=== PATIENT | male | born 2000 | race African-American/Black ===

== ENCOUNTER 2023-11-29 12:18 | Day surgery (SDC) | payer BC, SELFPAY ==
[2023-11-29] VITALS (14 sets, daily range): BP systolic 88–138; BP diastolic 36–84; PULSE 53–104; RESP 8–20; TEMP 36–37.2; O2SAT 97–100
--- NOTE | ~2023-11-29 | US_ITS ---
EXAMINATION: US scrotum doppler DATE: 11/29/2023 12:58 INDICATION: Left testicular pain TECHNIQUE: Testicular sonogram utilizing grayscale and Doppler COMPARISON: None. FINDINGS: The right testis measures 4.0 x 2.2 x 2.6 cm. The left testis measures 4.1 x 2.5 x 3.4 cm. Symmetric normal grayscale appearance to both testes. Normal vascular flow identified in the right testis with no evident vascular flow in the left testis on color Doppler. The right epididymis is normal with nor mal vascular flow. There is diffuse mild enlargement of the left epididymis which is similar without evident vascular flow on color Doppler. There is no varicocele or hydrocele. IMPRESSION: 1. Normal appearing left testis and diffusely enlarged, likely edematous left testis, both without e vident vascular flow on color Doppler consistent with torsion. Dr. Neil discussed these findings with Dr. Hickman at 1:00 PM. Reviewed, dictated and finalized at location A. R PURIFIER IMPRESSION: 1. Normal appearing left testis and diffusely enlarged, likely edematous left testis, both without evident vascular flow on color Doppler consistent with tor khurram. Dr. Neil discussed these findings with Dr. Hickman at 1:00 PM.
--- NOTE | 2023-11-29 12:21 | ED.MALEGU ---
HPI - Male Genitourinary General Chief complaint: Urogenital-Male Stated complaint: left testicle pain Time Seen by Provider: 11/29/23 12:21 Source: patient Mode of arrival: ambulatory Limitations: no limitations History of Present Illness HPI Narrative: Saul is a 23-year-old male patient presenting to the ER today for complaints of left testicle pain that occurred 1 hour prior to arrival. He denies any known injury to his testicle. No blood in his semen, denies any penile discharge. Denies any fever or chills. Related Data Allergies Allergy/AdvReac Type Severity Reaction Status Date / Time No Known Allergies Allergy Verified 11/29/23 12:28 Review of Systems Review of Systems: Pertinent positives per HPI. Patient denies any fever, chills, rash, headache, visual changes, dizziness, cough, runny nose, sore throat, shortness of breath, chest pain, palpitations, nausea, vomiting, diarrhea, constipation, abdominal pain, or any urinary issues. PMFSH Comments At the time of my signature, I reviewed and agree with the nursing past medical, surgical, social, and family history. There is no relevant family history pertinent to the patient complaint. Exam Narrative: General: Well-developed, well nourished, in no apparent distress. Head: Normocephalic, atraumatic. Cardio: Regular rate and rhythm, s1 and s2 normal, no murmur appreciated. Resp: Clear to auscultation bilaterally, no rhonchi, rales, wheezing or rubs. Abdomen: Soft, pliable, bowel sounds present in all quadrants, non-tender to palpation, no organomegly, no CVAT tenderness. : Circumcised male without corneal adhesions, tenderness to palpation over the left testicle with absent cremasteric reflex, Course Course Emergency Course: Portions of this record may have been created with voice recognition software. Vital Signs Vital signs: Vital Signs Temperature 36.3 C L 11/29/23 12:22 Pulse Rate 66 11/29/23 12:22 Respiratory Rate 20 11/29/23 12:22 Blood Pressure 119/82 11/29/23 12:22 Pulse Oximetry 100 11/29/23 12:22 Oxygen Delivery Room Air 11/29/23 12:22 Temperature 36.6 C 11/29/23 16:25 Pulse Rate 64 01/17/24 16:25 Respiratory Rate 18 11/29/23 16:25 Blood Pressure 119/64 11/29/23 16:25 Pulse Oximetry 100 11/29/23 16:25 Oxygen Delivery Room Air 11/29/23 16:25 Oxygen Flow Rate 7 11/29/23 16:22 Vital signs reviewed MDM - Male Genitourinary MDM Narrative Medical decision making narrative: At the time of visit patient is resting comfortably on the exam table. Patient appears to be nontoxic. Labs: White blood cell count 7.0, H&H is 14.6 and 45.7, platelet count 301, chemistry shows a sodium level 140, potassium at 3.6, chloride of 100, carbon dioxide of 29, BUN is 7 with a creatinine is 0.8, GFR greater than 60, liver function test shows elevation in the AST but normal AL and alk-phos. Diagnostics: US scrotum: Normal appearing left testis and diffusely enlarged, likely edematous left testis, both without evident vascular flow on color Doppler consistent with torsion. Medications given: 8 mg of morphine with 8 mg of Zofran IV push Plan: Consult urology and spoke to Dr. Wren and will send patient to OR. Differential Diagnosis Differential diagnosis: Likely epididymitis, inguinal hernia and other (Testicular torsion, STI infection) Lab Data 11/29/23 12:37 11/29/23 12:37 Labs: Lab Results 11/29/23 Range/Units 12:37 WBC 7.0 (4.5-10.0) K/mm3 RBC 5.09 (4.6-6.20) M/mm3 Hgb 14.6 (14.0-18.0) g/dL Hct 45.7 (42.0-52.0) % MCV 89.8 (80-100) fl MCH 28.7 (26-34) pg MCHC 31.9 L (32-36) g/dl RDW 12.3 (11.5-14.5) % Plt Count 301 (150-375) k/mm3 MPV 9.3 (7.4-10.4) fl Immature Gran % (Auto) 0.3 (0-0.5) % Neut % (Auto) 61.4 (45.5-73.1) % Lymph % (Auto) 27.7 (18.3-44.2) % [place] % (Auto) 9.5 H (2.6-8.5) % Eos % (Auto) 0.7 (0-4
--- NOTE | 2023-11-29 12:40 | PC.NURSE ---
Pt attempted to give u/a sample x 2, unsuccessful, requesting more time
[2023-11-29 12:45] LABS: Basophils Percent Auto 0.4 % (0.2-1.2); Eosinophils Absolute Auto 0.1 K/mm3 (0-0.3); Eosinophils Percent Auto 0.7 % (0-4.4); Hematocrit 45.7 % (42.0-52.0); Hemoglobin 14.6 g/dL (14.0-18.0); Immature Granulocyte Absolute 0.02 K/mm3 (0.00-0.031); Immature Granulocyte Percent A 0.3 % (0-0.5); Lymphocytes Absolute Auto 1.95 K/mm3 (0.9-3.2); Lymphocytes Percent Auto 27.7 % (18.3-44.2); Mean Corpuscular HGB Conc 31.9 g/dl (32-36); Mean Corpuscular Hemoglobin 28.7 pg (26-34); Mean Corpuscular Volume 89.8 fl (80-100); Mean Platelet Volume 9.3 fl (7.4-10.4); Monocytes Absolute Auto 0.7 K/mm3 (0.1-0.6); Monocytes Percent Auto 9.5 % (2.6-8.5); Neutrophils Absolute Auto 4.3 K/mm3 (1.3-6.7); Neutrophils Percent Auto 61.4 % (45.5-73.1); Platelet Count Result 301 k/mm3 (150-375); Red Blood Count 5.09 M/mm3 (4.6-6.20); Red Cell Distribution Width 12.3 % (11.5-14.5)
[2023-11-29 12:56] LABS: Alanine Aminotransferase 39 U/L (6-50); Albumin Level 4.8 g/dL (3.5-5.1); Alkaline Phosphatase 123 U/L (38-126); Anion Gap 11 mmol/L (8-16); Aspartate Amino Transferase 117 U/L (17-59); Bilirubin,Total 1.1 mg/dL (0.2-1.3); Blood Urea Nitrogen 7 mg/dL (9-20); Calcium 9.4 mg/dL (8.4-10.2); Carbon Dioxide 29 mmol/L (22-30); Chloride 100 mmol/L (98-107); Estimated CRCL calculation 118 ml/min; Estimated Glomerular Filt Rate > 60; Glucose 121 mg/dL (65-110); Potassium 3.6 mmol/L (3.4-5.0); Sodium 140 mmol/L (137-145)
[2023-11-29] MEDS: SODIUM CHLORIDE 0.9% IV 1,000 ML 999 ML IV CONT (12:59)
[2023-11-29] MEDS: MORPHINE SULFATE (*CRX) 4 MG/ML INJ IV PUSH ×2 (12:59→13:51)
[2023-11-29] MEDS: ONDANSETRON INJ 4 MG/2 ML VIAL IV PUSH ×2 (12:59→13:51)
--- NOTE | 2023-11-29 14:15 | PM.IMHP ---
H&P: HPI History of Present Illness Date/Time: 11/29/23 14:15 Chief Complaint: Left scrotal pain Narrative: Saul is a 23-year-old male who developed significant left scrotal pain that he noticed after taking a shower. Denies any trauma to the area or prior history of a. He was evaluated in the emergency room were a a scrotal ultrasound was performed and revealed torsion to the left testicle with no flow. Patient is being taken to the operating room emergently for scrotal exploration with left orchiopexy possible right orchiopexy in addition. Review of Systems Review of Systems: All systems reviewed & are unremarkable except as noted in HPI and below Meds Home Medications and Allergies Allergies Allergy/AdvReac Type Severity Reaction Status Date / Time No Known Allergies Allergy Verified 11/29/23 12:28 Vital Signs Vital Signs - 24 hr 11/29/23 12:22 11/29/23 13:49 Temperature 36.3 C L Pulse Rate 66 104 H Respiratory Rate 20 17 Blood Pressure 119/82 138/84 Pulse Oximetry 100 98 Oxygen Delivery Room Air Exam Const: General: cooperative and healthy appearing; No comfortable Resp: Effort & Inspection: normal respiratory effort Cardio: Rate: regular rate Rhythm: regular rhythm : Male General Exam: Yes edema Scrotum: other (Tender left hemiscrotum. Difficult to evaluate given his pain) H&P: Results Labs Labs: Short CBC 11/29/23 Range/Units 12:37 WBC 7.0 (4.5-10.0) K/mm3 Hgb 14.6 (14.0-18.0) g/dL Hct 45.7 (42.0-52.0) % Plt Count 301 (150-375) k/mm3 BMP 11/29/23 12:37 Sodium 140 Potassium 3.6 Chloride 100 Carbon Dioxide 29 BUN 7 L Creatinine 0.80 Glucose 121 H Calcium 9.4 Liver Function 11/29/23 Range/Units 12:37 Total Bilirubin 1.1 (0.2-1.3) mg/dL AST 117 H (17-59) U/L ALT 39 (6-50) U/L Alkaline Phosphatase 123 (38-126) U/L Albumin 4.8 (3.5-5.1) g/dL Assessment and Plan Assessment and plan (1) Left testicular torsion: Code(s): N44.00 - Torsion of testis, unspecified Status: Acute Assessment and Plan: Proceed with scrotal exploration and possible bilateral orchiopexy
--- NOTE | 2023-11-29 14:18 | WPDHPUPDATE1 ---
History and Physical Update Update Date/Time: 11/29/23 14:18 History and Physical has been reviewed, including an updated exam of the patient. There are NO changes in the patient's condition. Risks, benefits, and alternatives have been discussed and questions answered. Patient agrees to proceed with procedure. Proceed with scrotal exploration and possible bilateral orchiopexy
[2023-11-29] MEDS: ceFAZolin 2 GM/D5W 50 ML 2 GM/50 ML BAG IVPB (14:24)
[2023-11-29] MEDS: BUPivacaine HCL 0.25% PF 30 ML VIAL 10 ML INFILTRATE (15:15)
--- NOTE | 2023-11-29 15:19 | W.PM.PROC2 ---
Procedure Note - Detailed Date of Procedure 11/29/23 Pre-op Diagnosis left testicle pain Left testicular torsion Post-op Diagnosis Same Procedure Performed Scrotal exploration, left hydrocelectomy, left orchiopexy with detorsion of testicle Surgeon Manuel Wren MD Anesthesia General Findings Torsed left testicle 180? Description of Procedure Patient is taken the operative suite correctly identified. Once anesthesia was obtained he was prepped draped usual sterile fashion. Transverse incision was made in left hemiscrotum. His tunica layers were very thin. We were able to bring the testicle out. He did have a hydrocele. The hydrocele was opened and drained of straw-colored fluid. There was only approximately 10-15 cc present. Excess skin was excised. The testicle was noted to be torsed. We de torsed the testicle. The appendix testes was removed. An orchiopexy was done with a 3 point fixation using 3-0 Ethibond. Testicle was in proper location. It had nice color to it. Tunica was closed using 3-0 chromic. Skin was closed using 3-0 chromic in a running fashion. Patient tolerated procedure well without any complications and was taken recovery stable condition. This completes dictation. Please send a copy of op note to my office Estimated Blood Loss 0 Drains No Packing No Pathology Yes Complications No immediate complications Condition Stable
[2023-11-29] MEDS: LACTATED RINGERS 1,000 ML 30 ML IV CONT ×2 (15:20→15:21)
--- NOTE | 2023-11-29 16:28 | SUR.PHASEI ---
1624: Simple mask removed.
--- NOTE | 2023-11-29 18:44 | SUR.PHASEII ---
1830 PT MEETS ANESTHESIA DISCHARGE CRITERIA. DISCHARGE INSTRUCTIONS GIVEN TO PT & OVER THE PHONE TO PTS MOTHER- ALL QUESTIONS ANSWERED. PT DRESSED & WAITING ON RIDE HOME.
== END 2023-11-29 18:40 | disposition home or self-care (01) ==
LOC: ANHED 13:07 → ANHSURGERY 13:08
PROVIDERS: Emergency Provider Nurse Practitioner Family; Visit Provider Urology
PROC: (CPT 55110; principal; 2023-11-29 14:30)
DX: N44.00 Torsion of testis, unspecified (principal); N43.3 Hydrocele, unspecified
CPT/HCPCS: 55040; 54600; 36415; 76870; 80053; 85025; 88302; 93976; 96361; 96374; 96375; 96376; 99285; J0690; J1100; J1200; J2250; J2270; J2405; J2704; J3010; J7030; J7120